=== PATIENT | female | born 1965 | race Caucasian/White ===

== ENCOUNTER 2017-01-29 18:29 | Emergency (ER) | payer BC, SELFPAY ==
[~2017-01-29 18:29] MED LIST: Sodium Chloride Irrig Solution 250 ML BOT ONE; Sterile Water Irrigation 250 ML BOT ONE
[2017-01-29] MEDS ORDERED: Triple Antibiotic Oint 1 GM Packet ONE (19:39)
[2017-01-29] MEDS ORDERED: HYDROcodone/Acetaminophen 10/325 mg Tablet ONE (19:46)
[2017-01-29] MEDS ORDERED: Sulfameth/Trimethoprim DS 800-160mg TAB ONE (19:46)
[2017-01-29] MEDS ORDERED: Naproxen 500 MG TAB ONE (19:46)
== END 2017-01-29 19:58 | disposition home or self-care (01) ==
LOC: MADERS 18:29
DX: S61.412A Laceration without foreign body of left hand, initial encounter (principal); I25.2 Old myocardial infarction; G43.909 Migraine, unspecified, not intractable, without status migrainosus; F17.210 Nicotine dependence, cigarettes, uncomplicated; W45.8XXA Other foreign body or object entering through skin, initial encounter
CPT/HCPCS: 12001; J2001

== ENCOUNTER 2017-09-14 15:32 | Emergency (ER) | payer BC ==
[~2017-09-14 15:32] MED LIST changes: +Mag-Al Plus 1200 MG/1200 MG/120 MG/30 ML UDCUP ONE; +Sodium Chloride 0.9% 1,000 ML BAG ONE; -Sodium Chloride Irrig Solution 250 ML BOT ONE; -Sterile Water Irrigation 250 ML BOT ONE
[2017-09-14] MEDS ORDERED: Ondansetron HCl/PF 4 MG/2 ML Vial ONE (15:55)
[2017-09-14] MEDS ORDERED: Ketorolac Tromethamine 30 MG/ML VIAL ONE (15:55)
[2017-09-14 15:58] LABS: #Basophils 0.1 thou/uL (0.0-0.2); #Eosinphils 0.1 thou/uL (0.0-0.7); #Lymphocytes 2.8 thou/uL (1.20-3.40); #Monocytes 0.5 thou/uL (0.11-0.59); #Neutrophils 5.6 thou/uL (1.40-6.50); %Eosinophils 1.4 % (0.0-10.0); %Lymphocytes 30.7 % (21.0-51.0); %Monocytes 4.9 % (0.0-10.0); %Neutrophils 61.9 % (42.0-75.0); Hemoglobin 14.6 g/dL (12.0-16.0); Mean Corpuscular HGB CONC 33.3 g/dL (32.0-36.0); Mean Corpuscular Hemoglobin 31.5 pg (27.0-31.0); Mean Corpuscular Volume 94.5 fl (81.0-99.0); Mean Platelet Volume 9.2 fL (7.4-10.4); Platelet Count 248 thou/uL (130-400); RBC Distribution Width 11.7 % (11.5-14.5); Red Blood Cell (RBC) Count 4.63 mill/uL (4.20-5.40); White Blood Cell (WBC) Count 9.1 thou/uL (4.8-10.8)
[2017-09-14 16:14] LABS: ALT (SGPT) 16 U/L (8-55); AST (SGOT) 16 U/L (5-34); Albumin 4.1 g/dL (3.5-5.0); Alkaline Phosphatase 89 U/L (40-150); Anion Gap 16 mmol/L (10-20); BUN (Urea Nitrogen) 11 mg/dL (9.8-20.1); Bilirubin, Total 0.4 mg/dL (0.2-1.2); Calc. Creatinine Clearance 0 mL/min (70-130); Calcium 9.4 mg/dL (7.8-10.44); Carbon Dioxide 26 mmol/L (22-29); Chloride 104 mmol/L (98-107); Estimated GFR-MDRD 73; Globulin 3.4 g/dL (2.4-3.5); Glucose 100 mg/dL (70-105); Lipase 20 U/L (8-78); Potassium 3.5 mmol/L (3.5-5.1); Protein, Total 7.5 g/dL (6.0-8.3); Sodium 142 mmol/L (136-145)
[2017-09-14 16:16] LABS: Bilirubin Negative (Negative); Blood, Urine Large (Negative); Glucose, Urine (Dipstick) Negative (Negative); Leukocyte Negative (Negative); Nitrite Negative (Negative); Protein, Urine (Dipstick) Negative (Neg-Trace); Urobilinogen 0.2 mg/dL (0.2-1.0)
[2017-09-14 16:17] LABS: Bacteria/HPF Rare-Few HPF (None Seen); Clarity Hazy (Clear); WBC/HPF 0-3 HPF (0-3)
[2017-09-14 16:18] LABS: Pregnancy Test - Urine (BHCG) Negative (Negative); Pregu Control Background? CLEAR/WHITE (CLR/WHITE); Pregu Control Bar Appear? YES (CONTROL BAR)
--- NOTE | 2017-09-14 17:10 | CT ---
CT ABDOMEN AND PELVIS WITHOUT CONTRAST: HISTORY: Right lower quadrant pain. FINDINGS: Absence of oral and IV contrast reduces the sensitivity of the exam, particularly for evaluation of s olid organs involved. The lung bases are clear. There is a 14 mm nodule in the right lower breast, which is stable since 0 05/27/2014. A moderate sized hiatal hernia is present. There are calcific granulomas in the spleen. No calcified gallstones are seen. No free air or free fluid is noted in the abdomen or pelvis. The appendix is unremarkable. No peric ecal inflammatory changes are seen. No calculi are seen in the kidneys, ureters, or urinary bladder. No hydroureteronephrosis is noted o n either side. There are vascular calcifications without evidence of aneurysmal dilatation of the ab dominal aorta. There are mild degenerative changes in the spine. IMPRESSION: 1. No CT evidence of urinary tract calculi/obstruction or appendicitis. 2. Moderate sized hiatal hernia. POS: [facility]
[2017-09-14] MEDS ORDERED: Milk Of Magnesia 30 ML UDCUP ONE (17:26)
[2017-09-14] MEDS ORDERED: Hyoscyamine Sulfate SL 0.125 mg Tablet ONE (17:26)
[2017-09-14] MEDS ORDERED: Morphine 4 MG/ML VIAL ONE (17:26)
== END 2017-09-14 17:20 | disposition home or self-care (01) ==
LOC: MADERS 15:32
DX: K52.9 Noninfective gastroenteritis and colitis, unspecified (principal); I25.2 Old myocardial infarction; F17.210 Nicotine dependence, cigarettes, uncomplicated; G43.909 Migraine, unspecified, not intractable, without status migrainosus
CPT/HCPCS: 74176; 80053; 81003; 81015; 81025; 83690; 85025; 96361; 96374; 96375; J1885; J2270; J2405; J7050

== ENCOUNTER 2019-10-22 09:59 | Emergency (ER) | payer SELFPAY ==
[2019-10-22] MEDS ORDERED: Oseltamivir 75 MG CAP ONE (10:26)
[2019-10-22] MEDS ORDERED: predniSONE 20 MG TAB ONE (10:26)
--- NOTE | 2019-10-22 10:34 | RAD ---
XR Chest Pa Lat STANDARD HISTORY: Cough COMPARISON: 04/16/2018 FINDINGS: The heart size is normal. The lungs are well expanded without focal areas of consolidation, pneumothorax or pleural effusions. IMPRESSION: No radiographic evidence of acute cardiopulmonary process.
[2019-10-22] MEDS ORDERED: Ketorolac Tromethamine 30 MG/ML VIAL ONE (10:53)
== END 2019-10-22 11:14 | disposition home or self-care (01) ==
LOC: MADERS 09:59
DX: B34.9 Viral infection, unspecified (principal); I25.2 Old myocardial infarction; G43.909 Migraine, unspecified, not intractable, without status migrainosus; F17.210 Nicotine dependence, cigarettes, uncomplicated; Z86.73 Personal history of transient ischemic attack (TIA), and cerebral infarction without residual deficits
CPT/HCPCS: 71046; 94640; 96372; J1885; J7512; J7620

== ENCOUNTER 2021-12-04 13:51 | Emergency (ER) | payer BC, OTHER ==
[2021-12-04] MEDS ORDERED: Iopamidol 370 76% 100 ML VIAL FS ONE (13:52)
[2021-12-04 14:27] LABS: #Basophils 0.1 thou/uL (0.0-0.2); #Eosinphils 0.1 thou/uL (0.0-0.7); #Lymphocytes 1.8 thou/uL (1.20-3.40); #Monocytes 0.3 thou/uL (0.11-0.59); #Neutrophils 4.6 thou/uL (1.40-6.50); %Basophils 1.2 % (0.0-1.0); %Eosinophils 1.2 % (0.0-10.0); %Lymphocytes 26.1 % (21.0-51.0); %Neutrophils 66.6 % (42.0-75.0); Hemoglobin 13.8 g/dL (12.0-16.0); Mean Corpuscular HGB CONC 33.6 g/dL (32.0-36.0); Mean Corpuscular Hemoglobin 30.8 pg (27.0-31.0); Mean Corpuscular Volume 91.7 fL (78.0-98.0); Mean Platelet Volume 8.2 fL (7.4-10.4); Platelet Count 216 thou/uL (130-400); Red Blood Cell (RBC) Count 4.49 mill/uL (4.20-5.40); White Blood Cell (WBC) Count 6.9 thou/uL (4.8-10.8)
[2021-12-04 14:31] LABS: Prothrombin Time 12.8 sec (12.0-14.7)
[2021-12-04 14:32] LABS: PTT 28.4 sec (22.9-36.1)
[2021-12-04] MEDS ORDERED: Morphine 4 MG/ML VIAL ONE (14:36)
[2021-12-04] MEDS ORDERED: Pantoprazole 40 MG VIAL ONE ×2 (14:37→15:28)
[2021-12-04] MEDS ORDERED: Ondansetron PF 4 MG/2 ML Vial ONE (14:37)
[2021-12-04] MEDS ORDERED: Lactated Ringer's 1,000 ML ONE (14:37)
[2021-12-04 14:42] LABS: Bilirubin Negative (Negative); Blood, Urine Large (Negative); Clarity Clear (Clear); Glucose, Urine (Dipstick) Negative (Negative); Ketone, Urine Negative (Negative); Leukocyte Negative (Negative); Nitrite Negative (Negative); Protein, Urine (Dipstick) Trace mg/dL (Neg-Trace); Urobilinogen 0.2 mg/dL (Less than 2); pH, Urine 5.5 (5.0-9.0)
[2021-12-04 14:43] LABS: ALT (SGPT) 19 U/L (8-55); AST (SGOT) 18 U/L (5-34); Alkaline Phosphatase 78 U/L (40-110); Anion Gap 16 mmol/L (10-20); BUN (Urea Nitrogen) 13 mg/dL (9.8-20.1); Bilirubin, Total 0.8 mg/dL (0.2-1.2); Calc. Creatinine Clearance 0 mL/min (70-130); Calcium 9.4 mg/dL (7.8-10.44); Carbon Dioxide 20 mmol/L (22-29); Chloride 106 mmol/L (98-107); Globulin 3.1 g/dL (2.4-3.5); Glucose 107 mg/dL (70-105); Lipase 7 U/L (8-78); Magnesium 1.9 mg/dL (1.6-2.6); Potassium 3.7 mmol/L (3.5-5.1); Protein, Total 7.1 g/dL (6.0-8.3); Sodium 138 mmol/L (136-145)
[2021-12-04 14:51] LABS: Bacteria/HPF Rare-Few HPF (None Seen); WBC/HPF 0-3 HPF (0-3)
[2021-12-04 14:52] LABS: Mucous/LPF 1+ LPF (<2+)
[2021-12-04] MEDS ORDERED: Mag-Al Plus 1200 MG/1200 MG/120 MG/30 ML UDCUP ONE (15:29)
[2021-12-04] MEDS ORDERED: Lidocaine Viscous Sol 2% 15 ml UD Cup ONE (15:29)
[2021-12-04] MEDS ORDERED: Sodium Chloride 0.9% 100 ML ONE (15:38)
[2021-12-04] MEDS ORDERED: Dicyclomine 10 MG CAP ONE (16:02)
[2021-12-04] MEDS ORDERED: Nitroglycerin 0.4 MG TAB 1 EACH ONE (19:00)
== END 2021-12-04 16:33 | disposition home or self-care (01) ==
LOC: MADERS 13:51
DX: K44.9 Diaphragmatic hernia without obstruction or gangrene (principal); R31.29 Other microscopic hematuria; L72.9 Follicular cyst of the skin and subcutaneous tissue, unspecified; R11.10 Vomiting, unspecified; R19.7 Diarrhea, unspecified; K21.9 Gastro-esophageal reflux disease without esophagitis; I25.2 Old myocardial infarction; G43.909 Migraine, unspecified, not intractable, without status migrainosus; F17.210 Nicotine dependence, cigarettes, uncomplicated
CPT/HCPCS: 71045; 74177; 80053; 81003; 81015; 82274; 82550; 83605; 83690; 83735; 84484; 85025; 85610; 85730; 87804; 93005; 94760; 96365; 96375; C9113; J2270; J2405; J7120; Q9967

== ENCOUNTER 2022-07-26 15:18 | Emergency (ER) | payer BC ==
[~2022-07-26 15:18] MED LIST changes: -Mag-Al Plus 1200 MG/1200 MG/120 MG/30 ML UDCUP ONE; +PROPOFOL 200 MG/20 ML VIAL ONE; +Rocuronium Bromide 10 MG/ML (10ML VIAL) ONE; +Sodium Chloride 0.9% 100 ML BAG ONE; +levETIRAcetam 500 MG/5 ML VIAL ONE
[2022-07-26] MEDS ORDERED: levETIRAcetam 500 MG/5 ML VIAL ONE ×2 (15:59→17:35)
[2022-07-26] MEDS ORDERED: Lorazepam 2 MG/ML VIAL ONE ×4 (16:11→23:42)
[2022-07-26 16:32] LABS: #Basophils 0.1 thou/uL (0.0-0.2); #Eosinphils 0.1 thou/uL (0.0-0.7); #Monocytes 0.3 thou/uL (0.11-0.59); #Neutrophils 5.2 thou/uL (1.40-6.50); %Basophils 0.8 % (0.0-1.0); %Eosinophils 1.2 % (0.0-10.0); %Lymphocytes 26.2 % (21.0-51.0); %Monocytes 3.9 % (0.0-10.0); %Neutrophils 67.8 % (42.0-75.0); Hemoglobin 13.8 g/dL (12.0-16.0); Mean Corpuscular HGB CONC 33.6 g/dL (32.0-36.0); Mean Corpuscular Hemoglobin 31.9 pg (27.0-31.0); Mean Platelet Volume 9.2 fL (7.4-10.4); Platelet Count 211 10x3/uL (130-400); RBC Distribution Width 11.2 % (11.5-14.5); Red Blood Cell (RBC) Count 4.34 mill/uL (4.20-5.40); White Blood Cell (WBC) Count 7.7 10x3/uL (4.8-10.8)
[2022-07-26 16:46] LABS: ALT (SGPT) 19 U/L (8-55); AST (SGOT) 16 U/L (5-34); Albumin 3.8 g/dL (3.5-5.0); Alkaline Phosphatase 88 U/L (40-110); Anion Gap 14 mmol/L (10-20); BUN (Urea Nitrogen) 16 mg/dL (9.8-20.1); Bilirubin, Total 0.3 mg/dL (0.2-1.2); Calc. Creatinine Clearance 0 mL/min (70-130); Calcium 9.1 mg/dL (7.8-10.44); Carbon Dioxide 20 mmol/L (22-29); Chloride 111 mmol/L (98-107); Estimated GFR 74; Glucose 108 mg/dL (70-105); Potassium 3.8 mmol/L (3.5-5.1); Protein, Total 6.8 g/dL (6.0-8.3); Sodium 141 mmol/L (136-145)
[2022-07-26] MEDS ORDERED: diphenhydrAMINE 50 MG/ML VIAL ONE (17:35)
[2022-07-26] MEDS ORDERED: Sodium Chloride 0.9% 100 ML ONE ×2 (17:35→18:31)
[2022-07-26] MEDS ORDERED: Fosphenytoin Sodium 500 mg/10 ml Vial ONE (17:42)
[2022-07-26] MEDS ORDERED: Meropenem 1 GM VIAL ONE (18:31)
[2022-07-26 18:59] LABS: Bilirubin Negative (Negative); Blood, Urine Small (Negative); Clarity Clear (Clear); Glucose, Urine (Dipstick) Negative (Negative); Ketone, Urine Negative (Negative); Leukocyte Negative (Negative); Nitrite Negative (Negative); Protein, Urine (Dipstick) Negative (Neg-Trace); Urobilinogen 0.2 mg/dL (Less than 2); pH, Urine 5.5 (5.0-9.0)
[2022-07-26 19:05] LABS: Squamous Epithelial 0-3 HPF (0-3); WBC/HPF 0-3 HPF (0-3)
[2022-07-26 19:06] LABS: Bacteria/HPF Rare-Few HPF (None Seen)
[2022-07-26 19:13] LABS: SARS-CoV-2 NAA Rapid Test Not Detected (NotDetected)
[2022-07-26] MEDS ORDERED: Propofol 1,000 MG/100 ML VIAL IV ONE (23:06)
[2022-07-26] MEDS ORDERED: Fentanyl 100 MCG/2 ML VIAL ONE (23:20)
[2022-07-27] MEDS ORDERED: Ketamine 50 MG/ML (10ML VIAL) ONE (00:01)
[2022-07-27] MEDS ORDERED: Midazolam HCl 5 mg/ml Vial ONE (00:02)
[2022-07-27] MEDS ORDERED: Norepinephrine 4 MG/4 ML VIAL ONE (00:57)
[2022-07-27] MEDS ORDERED: Fentanyl 100 MCG/2 ML VIAL ONE (01:22)
[2022-07-27 01:39] LABS: Base Excess-Venous -5.7 mmol/L (-2.0 to 3.0); Bicarbonate (HCO3v) 20.3 mmol/L (22.0-28.0); CO2 Tension (PvCO2) 40.6 mmHg (42.0-51.0); Calcium, Ionized 1.03 mmol/L (1.15-1.33); Chloride 113 mmol/L (98-107); Hemoglobin - Calc 12.9 g/dL (12.0-16.0); Potassium 3.6 mmol/L (3.5-5.1); Sodium 146 mmol/L (138-145); T. Carbon Dioxide 21.5 mmol/L (22.0-28.0); vO2 Saturation-calc 99.7 % (60.0-85.0)
[2022-07-27] MEDS ORDERED: Propofol 1,000 MG/100 ML VIAL IV ONE (02:33)
[2022-07-27] MEDS ORDERED: PROPOFOL 0 ML ONE (02:57)
== END 2022-07-27 02:52 | disposition short-term general hospital (02) ==
LOC: MADERS 15:18
DX: G40.901 Epilepsy, unspecified, not intractable, with status epilepticus (principal); J96.00 Acute respiratory failure, unspecified whether with hypoxia or hypercapnia; J18.9 Pneumonia, unspecified organism; Z20.822 Contact with and (suspected) exposure to COVID-19; I25.2 Old myocardial infarction; G43.909 Migraine, unspecified, not intractable, without status migrainosus; F17.210 Nicotine dependence, cigarettes, uncomplicated; Z79.899 Other long term (current) drug therapy
CPT/HCPCS: 31500; 70450; 71045; 80053; 80177; 81003; 81015; 82330; 82435; 82803; 83605; 84132; 84295; 85014; 85025; 87040; 87086; 93005; 94760; 96365; 96366; 96367; 96368; 96375; 96376; J1200; J1953; J1956; J2060; J2185; J2250; J2704; J3010; J3490; J7050; J7070; J7620; Q2009

== ENCOUNTER 2023-11-29 18:27 | Emergency (ER) | payer OTHER ==
[2023-11-29 18:45] LABS: #Basophils 0.1 thou/uL (0.0-0.2); #Eosinphils 0.1 thou/uL (0.0-0.7); #Lymphocytes 3.1 thou/uL (1.20-3.40); #Monocytes 0.3 thou/uL (0.11-0.59); #Neutrophils 4.6 thou/uL (1.40-6.50); %Basophils 1.1 % (0.0-1.0); %Eosinophils 1.7 % (0.0-10.0); %Lymphocytes 37.2 % (21.0-51.0); %Neutrophils 56.1 % (42.0-75.0); Hematocrit 44.1 % (36.0-47.0); Hemoglobin 14.3 g/dL (12.0-16.0); Mean Corpuscular HGB CONC 32.5 g/dL (32.0-36.0); Mean Corpuscular Hemoglobin 30.1 pg (27.0-31.0); Mean Corpuscular Volume 92.7 fl (78.0-98.0); Mean Platelet Volume 8.9 fL (7.4-10.4); Platelet Count 214 10x3/uL (130-400); RBC Distribution Width 11.8 % (11.5-14.5); Red Blood Cell (RBC) Count 4.76 mill/uL (4.20-5.40); White Blood Cell (WBC) Count 8.3 10x3/uL (4.8-10.8)
[2023-11-29 18:55] LABS: Prothrombin Time 12.9 sec (12.0-14.7)
[2023-11-29 18:56] LABS: PTT 29.7 sec (22.9-36.1)
[2023-11-29 19:03] LABS: ALT (SGPT) 20 U/L (8-55); AST (SGOT) 16 U/L (5-34); Albumin 4.2 g/dL (3.5-5.0); Alkaline Phosphatase 82 U/L (40-110); Anion Gap 15 mmol/L (10-20); BUN (Urea Nitrogen) 10 mg/dL (9.8-20.1); Bilirubin, Total 0.4 mg/dL (0.2-1.2); Calc. Creatinine Clearance 0 mL/min (70-130); Calcium 9.5 mg/dL (7.8-10.44); Carbon Dioxide 21 mmol/L (22-29); Chloride 109 mmol/L (98-107); Estimated GFR 80; Globulin 3.2 g/dL (2.4-3.5); Glucose 90 mg/dL (70-105); Potassium 4.2 mmol/L (3.5-5.1); Protein, Total 7.4 g/dL (6.0-8.3); Sodium 141 mmol/L (136-145)
[2023-11-29 19:04] LABS: Acetaminophen Less than 10 mcg/mL (10.0-30.0); Alcohol Less than 10.0 mg/dL (Less than 10); Lipase 28 U/L (8-78); Magnesium 2.1 mg/dL (1.6-2.6); Salicylate Less than 8.0 mg/dL (15.0-30.0)
[2023-11-29 19:05] LABS: Troponin I Less than 0.010 ng/mL (< 0.028)
[2023-11-29] MEDS ORDERED: Ketorolac Tromethamine 30 MG (1 mL) VIAL ONE (19:57)
[2023-11-29] MEDS ORDERED: Metoclopramide HCl 10 MG (2 mL) VIAL ONE (19:57)
[2023-11-29] MEDS ORDERED: diphenhydrAMINE 50 MG/ML VIAL ONE (19:57)
[2023-11-29 19:58] LABS: Amphetamine Not Detected (NotDetected); Barbiturates Screen Detected (NotDetected); Benzodiazepine Screen Not Detected (NotDetected); Cocaine Metabolite Screen Not Detected (NotDetected); Methadone Not Detected (NotDetected); Methamphetamine Not Detected (NotDetected); Opiate Screen Not Detected (NotDetected); Oxycodone Screen Not Detected (NotDetected); Phencyclidine (PCP) Not Detected (NotDetected); THC/Cannabinoid Screen Detected (NotDetected); Tricyclic Screen Not Detected (NotDetected)
[2023-11-29] MEDS ORDERED: Sodium Chloride 0.9% 500 ML ONE (19:58)
[2023-11-29] MEDS ORDERED: Aspirin Chewable 81 MG TAB ONE (19:58)
== END 2023-11-29 21:22 | disposition left against medical advice (07) ==
LOC: MADERS 18:27
DX: G45.9 Transient cerebral ischemic attack, unspecified (principal); G43.909 Migraine, unspecified, not intractable, without status migrainosus; I10 Essential (primary) hypertension; I25.2 Old myocardial infarction; I46.9 Cardiac arrest, cause unspecified; I48.91 Unspecified atrial fibrillation; F17.210 Nicotine dependence, cigarettes, uncomplicated; Z86.73 Personal history of transient ischemic attack (TIA), and cerebral infarction without residual deficits; Z79.899 Other long term (current) drug therapy
CPT/HCPCS: 0042T; 36416; 70450; 71045; 80053; 80306; 80307; 83690; 83735; 83880; 84484; 85025; 85610; 85730; 93005; 96361; 96374; 96375; J1200; J1885; J2765; J7030